=== PATIENT | male | born 1945 | race African-American/Black ===

== ENCOUNTER → 2016-10-04 | Outpatient (CLI) | payer MEDICARE ==
[~2016-10-04] VITALS: Ht 177.8 cm; Wt 95.0 kg
[~2016-10-04] MED LIST: ALBU8.5H3 IH; AMLO-511 PO; ASPI-556 PO; ATOR20TA86 PO; CARV12 PO; CHL25 PO; CLON0.1T PO; CLOP75 PO; FEBU40T PO; SPIR25 PO; TAMS0.4C32 PO; TIOT185 IH
[2016-10-04 11:17] VITALS: BP 126/72
== END | disposition home or self-care (01) ==
LOC: SRCNTR 10:53
PROVIDERS: ATTEND Internal Medicine Cardiovascular Disease
DX: I12.9 Hypertensive chronic kidney disease with stage 1 through stage 4 chronic kidney disease, or unspecified chronic kidney disease (principal); E11.22 Type 2 diabetes mellitus with diabetic chronic kidney disease; N18.4 Chronic kidney disease, stage 4 (severe); E78.5 Hyperlipidemia, unspecified; M10.9 Gout, unspecified
CPT/HCPCS: G0463

== ENCOUNTER → 2016-12-04 | Outpatient (CLI) | payer MEDICARE ==
[~2016-12-04] VITALS: Ht 177.8 cm; Wt 93.5 kg
[~2016-12-04] MED LIST changes: +FURO40 PO
[2016-12-04 10:15] VITALS: BP 142/85
== END | disposition home or self-care (01) ==
LOC: SRCNTR 10:13
PROVIDERS: ATTEND Internal Medicine Cardiovascular Disease
DX: I12.9 Hypertensive chronic kidney disease with stage 1 through stage 4 chronic kidney disease, or unspecified chronic kidney disease (principal); N18.4 Chronic kidney disease, stage 4 (severe); I25.10 Atherosclerotic heart disease of native coronary artery without angina pectoris; M19.90 Unspecified osteoarthritis, unspecified site; E78.5 Hyperlipidemia, unspecified; M10.9 Gout, unspecified; Z95.5 Presence of coronary angioplasty implant and graft
CPT/HCPCS: G0463